=== PATIENT | female | born 1990 | race Caucasian/White ===

== ENCOUNTER 2017-06-04 09:50 | Emergency (ER) | payer BC ==
[2017-06-04 10:04] VITALS: BP 133/76
[2017-06-04] MEDS ORDERED: Ondansetron ODT TAB* 4 MG PO ONE (10:49)
--- NOTE | 2017-06-04 10:49 | UC ---
Throat Pain/Nasal Marty HPI - HPI Summary HPI Summary: emesis yesterday now has sore throat no fevers- - History of Current Complaint Chief Complaint: UCRespiratory Stated Complaint: THROAT PAIN Time Seen by Provider: 06/04/17 10:42 Hx Obtained From: Patient ?: No Onset/Duration: Sudden Onset, Lasting Days - 1, Still Present Severity: Moderate Pain Intensity: 5 Pain Scale Used: 0-10 Numeric Cough: None Associated Signs & Symptoms: Positive: Negative - Allergies/Home Medications Allergies/Adverse Reactions: Allergies Allergy/AdvReac Type Severity Reaction Status Date / Time No Known Allergies Allergy Verified 06/04/17 09:59 Home Medications: Home Medications Citalopram TAB* [CeleXA TAB*] 30 mg PO DAILY 06/04/17 [History Confirmed ] Norethindrone-E.estradiol-Iron [Blisovi Fe 04/30 1-20 mg-Mcg] 1 tab PO 06/04/17 [ History] PMH/Surg Hx/FS Hx/Imm Hx Previously Healthy: Yes - Surgical History Surgical History: None - Family History Known Family History: Positive: None - Social History Occupation: Employed Full-time Lives: Alone Alcohol Use: Rare Substance Use Type: None Smoking Status (MU): Never Smoked Tobacco Review of Systems Constitutional: Negative Skin: Negative Eyes: Negative ENT: Sore Throat Respiratory: Negative Cardiovascular: Negative Gastrointestinal: Vomiting Genitourinary: Negative Motor: Negative Neurovascular: Negative Musculoskeletal: Negative Neurological: Negative Psychological: Negative Is Patient Immunocompromised?: No All Other Systems Reviewed And Are Negative: Yes Physical Exam Triage Information Reviewed: Yes Appearance: Well-Appearing, No Pain Distress, Well-Nourished Vital Signs: Initial Vital Signs Temp 98.4 F 06/04/17 09:55 Pulse 82 06/04/17 09:55 Resp 18 06/04/17 09:55 BP 133/76 06/04/17 09:55 Pulse Ox 99 06/04/17 09:55 Vital Signs Reviewed: Yes Eye Exam: Normal Eyes: Positive: Conjunctiva Clear ENT Exam: Normal ENT: Positive: Normal ENT inspection, Hearing grossly normal, Pharynx normal, TMs normal, Uvula midline. Negative: Nasal congestion, Nasal drainage, Tonsillar swelling, Tonsillar exudate, Trismus, Muffled voice, Hoarse voice, Dental tenderness, Sinus tenderness Dental Exam: Normal Neck exam: Normal Neck: Positive: Supple, Nontender, No Lymphadenopathy Respiratory Exam: Normal Respiratory: Positive: Chest non-tender, Lungs clear, Normal breath sounds, No respiratory distress, No accessory muscle use Cardiovascular Exam: Normal Cardiovascular: Positive: RRR, No Murmur, Pulses Normal, Brisk Capillary Refill Abdominal Exam: Normal Abdomen Description: Positive: Nontender, No Organomegaly, Soft. Negative: CVA Tenderness (R), CVA Tenderness (L) Musculoskeletal Exam: Normal Musculoskeletal: Positive: Strength Intact, ROM Intact, No Edema Neurological Exam: Normal Neurological: Positive: Alert, Muscle Tone Normal Psychological Exam: Normal Skin Exam: Normal Diagnostics - Laboratory Diagnostic Studies Completed/Ordered: RST (-) Throat Pain/Nasal Course/Dx - Course Assessment/Plan: advance diet slowly tylenol ibuprofen for pain follow with pcp prn - Differential Dx/Diagnosis Provider Diagnoses: Viral Syndrome Discharge - Discharge Plan Condition: Stable Disposition: HOME Patient Education Materials: Clear Liquid Diet (ED), Acute Nausea and Vomiting (ED), Acute Diarrhea (ED), Nutrition Tips for Relief of Diarrhea (ED) Referrals: [facility] [place] [facility] [Outside] - If Needed
== END 2017-06-04 11:00 | disposition home or self-care (01) ==
LOC: UCEAST 09:50
DX: B34.9 Viral infection, unspecified (principal)
CPT/HCPCS: 87651; 99211; A9270-GY; G0463

== ENCOUNTER 2018-02-10 17:04 | Emergency (ER) | payer BC ==
--- NOTE | 2018-02-10 19:51 | UC ---
Throat Pain/Nasal Marty HPI - HPI Summary HPI Summary: 28-year-old female presents with a 2 day history of left ear pain. Associated with nasal congestion, nasal discharge, postnasal drip, and sore throat. Denies fever, chills, sinus pain, ear drainage, tinnitus, vertigo, dysphagia, chest pain, shortness of breath, cough, abdominal pain, nausea, or vomiting - History of Current Complaint Chief Complaint: UCEar Stated Complaint: EAR PAIN Time Seen by Provider: 02/10/18 19:16 Hx Last Menstrual Period: [id number] ?: No Onset/Duration: Gradual Onset Severity: Moderate Pain Intensity: 7 Cough: None Associated Signs & Symptoms: Positive: Nasal Discharge. Negative: Dysphagia, Wheezing, Hoarseness, Sinus Discomfort, Fever, Vomiting, Rash - Allergies/Home Medications Allergies/Adverse Reactions: Allergies Allergy/AdvReac Type Severity Reaction Status Date / Time No Known Allergies Allergy Verified 02/10/18 17:39 Home Medications: Home Medications Ibuprofen TAB* [Motrin TAB* 600 MG] 600 mg PO Q6H PRN 02/10/18 [History Confirmed 02/10/18] PMH/Surg Hx/FS Hx/Imm Hx Previously Healthy: Yes - Denies significant PMH - Surgical History Surgical History: None - Family History Family History: Noncontributory - Social History Occupation: Employed Full-time Lives: With Family Alcohol Use: Weekly Substance Use Type: None Smoking Status (MU): Never Smoked Tobacco Review of Systems Constitutional: Negative Skin: Negative Eyes: Negative ENT: Sore Throat, Ear Ache, Nasal Discharge, Sinus Congestion Respiratory: Negative Cardiovascular: Negative Gastrointestinal: Negative Is Patient Immunocompromised?: No All Other Systems Reviewed And Are Negative: Yes Physical Exam Triage Information Reviewed: Yes Appearance: Well-Appearing, No Pain Distress, Well-Nourished Vital Signs: Initial Vital Signs Temp 98.6 F 02/10/18 17:33 Pulse 68 02/10/18 17:33 Resp 16 02/10/18 17:33 BP 116/78 02/10/18 17:33 Pulse Ox 100 02/10/18 17:33 Vital Signs Reviewed: Yes Eyes: Positive: Conjunctiva Clear. Negative: Discharge ENT: Positive: Hearing grossly normal, Pharyngeal erythema - Mild with cobblestoning, Nasal congestion, Nasal drainage, TMs normal, Tonsillar swelling - 2+, Uvula midline. Negative: Tonsillar exudate, Trismus, Muffled voice, Sinus tenderness Neck: Positive: Supple, Nontender, No Lymphadenopathy Respiratory: Positive: Lungs clear, Normal breath sounds, No respiratory distress Cardiovascular: Positive: RRR, No Murmur Abdomen Description: Positive: Nontender, No Organomegaly, Soft. Negative: Distended, Guarding Neurological: Positive: Alert Skin Exam: Normal Diagnostics - Laboratory Diagnostic Studies Completed/Ordered: Rapid strep negative Throat Pain/Nasal Course/Dx - Course Course Of Treatment: 28 year old female with 2 day history of left ear pain associated with URI symptoms. Afebrile. Exam revealed nasal congestion, mild pharyngeal erythema and tonsillar edema without exudate, and normal TMs. Rapid strep negative. Symptoms are likely left eustachian tube dysfunction secondary to the URI. Recommend symptomatic treatment. She is to follow up with her PCP in 7 days if no improvement in symptoms. Warning symptoms reviewed. Verbalizes understanding and agrees with POC. - Differential Dx/Diagnosis Differential Diagnosis/HQI/PQRI: Otitis Media, Pharyngitis, Tonsillitis, URI Provider Diagnoses: Viral URI, left eustachian tube dysfunction Discharge - Sign-Out/Discharge Documenting (check all that apply): Patient Departure All imaging exams completed and their final reports reviewed: No Studies - Discharge Plan Condition: Stable Disposition: HOME Prescriptions: Fluticasone NASAL SPRAY 50MCG* [Flonase NASAL SPRAY 50MCG*] 2 spray BOTH NARES DAILY #1 btl Referrals: Shruti Sorensen MD [Primary Care Provider] - 7 Days (If symptoms persist) Additional Instructions: The rapid strep test performed in the clinic tonight was negative. Your history and exam are consistent with viral upper respiratory infection. Viral infections do not respond to antibiotics and typically run their course over 7- 10 days. Use a saline rinse kit such as Neti Pot or NeilMed at least twice a day. Start fluticasone nasal spray 2 sprays each nostril once a day. Take an over the counter decongestant such as Sudafed according to directions as needed for nasal congestion. Take acetaminophen (Tylenol) or ibuprofen (Advil, Motrin) according to directions as needed for fever or pain. Use salt water gargles several times a day if you have a sore throat. You may also use Chloraseptic spray or Cepacol lozenges for some temporary pain relief from your sore throat. Follow-up with your primary care provider in 7 days if symptoms persist. Seek immediate medical attention if you have a persistent fever greater than 100.5 F despite taking acetaminophen or ibuprofen, you are unable to swallow, has difficulty breathing, or have any worsening of symptoms. - Billing Disposition and Condition Condition: STABLE Disposition: Home
[2018-02-10 20:16] VITALS: BP 103/63
== END 2018-02-10 20:17 | disposition home or self-care (01) ==
LOC: UCEAST 17:04
DX: J06.9 Acute upper respiratory infection, unspecified (principal); H69.92 Unspecified Eustachian tube disorder, left ear
CPT/HCPCS: 87651; 99212; G0463

== ENCOUNTER 2018-12-20 16:53 | Emergency (ER) | payer BC ==
[2018-12-20 19:06] VITALS: BP 100/67
[2018-12-20] MEDS ORDERED: Acetaminophen TAB* 325 MG PO ONE (19:26)
--- NOTE | 2018-12-20 19:26 | UC ---
Hip/Pelvis Pain - HPI Summary HPI Summary: 28 y/o female presents to the urgent care c/o RT hip pain and RT thigh pain [place]12[place]17[place]2018. Pt states pain has worsen w/ standing or walking for long periods of time. This morning pain worse, it is 7/ 10 sharp w/ walking and she wants to make sure nothing happened to her Rt hip. It painful when she abduct her RT hip and radiates to the front of her RT upper thigh. She has taken Ibuprofen PO once a day to alleviate symptoms. LMP: 2018 w/ regular menstrual cycles. Pt denies previous injury, fever, numbness or tingling sensation over the RT lower extremity, SOB. calf pain, abdominal pain, chest pain, N/V/d or urinary symptoms. - History Of Current Complaint Chief Complaint: UCLowerExtremity Stated Complaint: LEG LEG INJURY Time Seen by Provider: 12/20/18 19:02 Hx Obtained From: Patient Hx Last Menstrual Period: 12/08/2018 ?: No Onset/Duration: Sudden Onset, Lasting Days - 4 days [place], Still Present Timing: Constant Severity Initially: Moderate Severity Currently: Moderate Pain Intensity: 6 Pain Scale Used: 0-10 Numeric Location: Discrete At: - RT hip, Radiates To: - RT upper thigh Character Of Pain: Sharp, Spasmodic Aggravating Factor(s): Movement Alleviating Factor(s): Rest, OTC Medications Associated Signs And Symptoms: Negative: Swelling, Bruising - mild, Fever, Weakness, Abdominal Pain, Knee Pain - Risk Factors Septic Arthritis Risk Factor: Negative - Allergies/Home Medications Allergies/Adverse Reactions: Allergies Allergy/AdvReac Type Severity Reaction Status Date / Time No Known Allergies Allergy Verified 12/20/18 17:07 PMH/Surg Hx/FS Hx/Imm Hx Previously Healthy: Yes - Pt denies PMHX - Surgical History Surgical History: None - Family History Known Family History: Positive: Diabetes Family History: Noncontributory - Social History Occupation: Employed Full-time Lives: With Family Alcohol Use: Occasionally Substance Use Type: None Smoking Status (MU): Never Smoked Tobacco Review of Systems All Other Systems Reviewed And Are Negative: Yes Constitutional: Positive: Negative Skin: Positive: Bruising - mild in the dorsal side of the Rt thigh Eyes: Positive: Negative ENT: Positive: Negative Respiratory: Positive: Negative Cardiovascular: Positive: Negative Gastrointestinal: Positive: Negative Genitourinary: Positive: Negative Motor: Positive: Negative Neurovascular: Positive: Negative Musculoskeletal: Positive: Decreased ROM - RT hip, Other: - RT hip pain and Rt upper thigh pain s/p fall Neurological: Positive: Negative Psychological: Positive: Negative Is Patient Immunocompromised?: No Physical Exam - Summary Physical Exam Summary: Vital Signs Reviewed: Yes Appearance: Well-Appearing, No Pain Distress, Well-Nourished female, sitting in the examining table w/o any distress. Eyes:: sclera and conjunctiva clear without injection, drainage, exudates PERRLA , EOMI. ENT: Positive: Normal ENT inspection, Hearing grossly normal, Pharynx normal, TMs normal, Uvula midline Neck: Positive: Supple, Nontender, No Lymphadenopathy Respiratory: Positive: Chest non-tender, Lungs clear, Normal breath sounds, No respiratory distress Cardiovascular: Positive: RRR, No Murmur, Pulses Normal, Brisk Capillary Refill Abdomen Description: Positive: Nontender, No Organomegaly, Soft. Negative: CVA Tenderness (R), CVA Tenderness (L) Bowel Sounds: Positive: Present Musculoskeletal: Positive: Strength Intact, Other: - RT Hip: Pt is able to ambulate without difficulty or assistance, mild limping , no antalgic gait. No surface trauma, mild fainted bruise on the posterior RT upper thigh. No erythema, warmth. No deformity, crepitus, or obvious asymmetry of the RT hip. No Tenderness to palpation over the symphysis pubis, ischial bone, trochanter, SI notch, buttocks, quadriceps, femoral triangle, inguinal ligament. Point tenderness on Rt lateral side of the hip below the iliac crest and the dorsal side of the upper thigh. No inguinal lymphadenopathy. FROM limited due to pain. Distal motor and neurovascular status are intact. Neuro: Alert and oriented x 3. No acute neurological deficits. Speech is normal. Psychological: WNL Skin: Dry and warm Triage Information Reviewed: Yes Vital Signs: Initial Vital Signs Temp 98.0 F 12/20/18 17:03 Pulse 92 12/20/18 17:03 Resp 18 12/20/18 17:03 BP 112/66 12/20/18 17:03 Pulse Ox 99 12/20/18 17:03 Hip Injury Course/Dx - Course Course Of Treatment: 28 y/o female presents to the urgent care c/o RT hip pain and RT thigh pain s[place]. Pt states pain has worsen w/ standing or walking for long periods of time. This morning pain worse, it is 7/ 10 sharp w/ walking and she wants to make sure nothing happened to her Rt hip. It painful when she abduct her RT hip and radiates to the front of her RT upper thigh. She has taken Ibuprofen PO once a day to alleviate symptoms. LMP: 2018 w/ regular menstrual cycles. Pt denies previous injury, fever, numbness or tingling sensation over the RT lower extremity, SOB. calf pain, abdominal pain, chest pain, N/V/d or urinary symptoms. Hx obtained. Rt hip and femur X- ray ordered, Impression: , no acute fracture observed as per Dr Tripp. Pt explained final radiology reports will be done tomorrow. Pt will be notified of any abnormality for further management. Pt most likely with a Muscle strain and contusion.Pt given crutches to avoid weight bearing and advised to f/u w/ [facility] orthopedic for further management in her symptoms. Pt Rx Ibuprofen PO and Flexeril PO to alleviate symptoms. Recommended to Apply ice, Keep your thigh immobilized with the SWAPNIL bandage. Avoid weight bearing using the crutches and avoid strenuous exercise or heavy lifting. D/c instructions explained. Pt understood and agreed w/ plan of care. pt left the clinic ambulating w/ the help of crutches. - Differential Dx/Diagnosis Differential Diagnosis/HQI/PQRI: Contusion, Hematoma, Sprain, Strain Provider Diagnosis: Contusion, Muscle strain of right thigh Discharge ED - Sign-Out/Discharge Documenting (check all that apply): Patient Departure - D/C home All imaging exams completed and their final reports reviewed: No - Discharge Plan Condition: Stable Disposition: HOME Prescriptions: Cyclobenzaprine TAB* [Flexeril 10 MG TAB*] 10 mg PO TID PRN #21 tab PRN Reason: Spasms - Muscle Ibuprofen TAB* [Motrin TAB* 600 MG] 600 mg PO Q6H PRN #30 tab PRN Reason: moderate pain Patient Education Materials: Muscle Strain (ED), Hip Contusion (ED) Referrals: [facility] [Provider Group] - 3 Days Stevanovic,Radomir D, MD [Primary Care Provider] - 3 Days Additional Instructions: 1-Please continue taken Ibuprofen PO q6-8hrs prn after meals as directed to alleviate pain and swelling. 2-Please apply ice, keep your thigh immobilized with the SWAPNIL bandage. Avoid weight bearing using the crutches. avoid strenuous exercise or heavy lifting 3- Please f/u with Orthopedic DR from [facility] in 3 days if not improvement of symptoms for further evaluation and treatment. - Billing Disposition and Condition Condition: STABLE Disposition: Home
--- NOTE | 2018-12-21 15:30 | UC ---
- Progress Note Progress Note: Final radiologist reading from December 20, 2018 for right hip and femur x- rays come back as no fracture. Provider interpretation the same date is not in the chart of that date however the diagnosis is contusion and muscle strain of the right thigh therefore there is no discrepancy. Course/Dx - Diagnoses Provider Diagnoses: Contusion, Muscle strain of right thigh Discharge ED - Sign-Out/Discharge Documenting (check all that apply): Patient Departure All imaging exams completed and their final reports reviewed: Yes - Discharge Plan Condition: Stable Disposition: HOME Prescriptions: Cyclobenzaprine TAB* [Flexeril 10 MG TAB*] 10 mg PO TID PRN #21 tab PRN Reason: Spasms - Muscle Ibuprofen TAB* [Motrin TAB* 600 MG] 600 mg PO Q6H PRN #30 tab PRN Reason: moderate pain Patient Education Materials: Muscle Strain (ED), Hip Contusion (ED) Referrals: [facility] [Provider Group] - 3 Days Shruti Sorensen MD [Primary Care Provider] - 3 Days Additional Instructions: 1-Please continue taken Ibuprofen PO q6-8hrs prn after meals as directed to alleviate pain and swelling. 2-Please apply ice, keep your thigh immobilized with the SWAPNIL bandage. Avoid weight bearing using the crutches. avoid strenuous exercise or heavy lifting 3- Please f/u with Orthopedic DR from [facility] in 3 days if not improvement of symptoms for further evaluation and treatment. - Billing Disposition and Condition Condition: STABLE Disposition: Home
== END 2018-12-20 20:10 | disposition home or self-care (01) ==
LOC: UCEAST 16:53
DX: S70.01XA Contusion of right hip, initial encounter (principal); S76.911A Strain of unspecified muscles, fascia and tendons at thigh level, right thigh, initial encounter; W19.XXXA Unspecified fall, initial encounter; Y92.9 Unspecified place or not applicable
CPT/HCPCS: 99212; A9270-GY; G0463